=== PATIENT | female | born 1945 | race American Indian/Alaskan Native ===

== ENCOUNTER 2017-09-07 07:55 | Outpatient (CLI) | payer MEDICARE, BC, OTHER ==
--- NOTE | 2017-09-07 09:05 | Fluoroscopy Report ---
FLUOROSCOPY BARIUM SWALLOW HISTORY: Dysphagia. FINDINGS: 81 fluoroscopic images were captured during this exam. Deglutition is normal. No evidence for aspiration. Structures of the larynx are within normal limits. The vallecula, epiglottis and piriform sinuses are well-visualized. The esophagus is normal caliber and mucosal pattern throughout. There is no evidence for mass, ulceration or stricture. No hiatal hernia was visualized during this exam. There did appear to be mild delay in esophageal emptying with occasional tertiary contractions. Mild esophageal dysmotility is suspected. The patient was able to ingest the barium tablet without difficulty. IMPRESSION: No anatomical abnormality is identified on barium swallow. Mild esophageal dysmotility is suspected.
== END 2017-09-07 07:56 | disposition home or self-care (01) ==
LOC: FLUORO 07:55
PROVIDERS: ATTEND Internal Medicine
DX: R13.10 Dysphagia, unspecified (principal)
CPT/HCPCS: 74220